=== PATIENT | female | born 1985 | race Two or more races ===

== ENCOUNTER → 2024-09-06 | Outpatient (CLI) | payer OTHER, SELFPAY ==
[2024-09-06 17:05] LABS: Hepatitis B Surface Ab Reactive (Immune) (Immune)
[2024-09-06 17:36] LABS: Beta HCG,Quantitative 43430 mIU/mL (<5.0)
[2024-09-13 06:27] LABS: HIV Ag/Ab, 4th Gen NON-REACTIVE
== END | disposition home or self-care (01) ==
PROVIDERS: Referring Provider Obstetrics & Gynecology; Visit Provider Obstetrics & Gynecology
DX: O20.0 Threatened abortion (principal)
CPT/HCPCS: 36415; 84702; 86706; 86850; 87077; 87086; 87186; 87389

== ENCOUNTER 2024-09-10 16:06 | Emergency (ER) | payer OTHER, MEDICAID, SELFPAY ==
[2024-09-10 16:18] VITALS: BP 112/72; PULSE 81; RESP 16; TEMP 36.8; O2SAT 100; BMI 23.8
--- NOTE | 2024-09-10 16:32 | XR_ITS ---
Examination: Complete OB ultrasound, less than 14 weeks, transabdominal Date and time of exam: September 10, 2024 1648 hours INDICATIONS: Vaginal bleeding and cramping beginning 2 days ago Technique: Obstetrical ultrasound images less than 14 weeks performed via transabdominal imaging Findings: A normal shaped single intrauterine gestation is present in the uterus. CRL 0.4 cm correspondences 6 weeks 1 day gestational age Cardiac motion 104 BPM Ultrasonographic survey of visible and placental structures unremarkable. Amniotic fluid volume appears appropriate for this estimated gestational age. Right ovary 3.3 x 2.0 x 3.3 cm arterial flow, right adnexal cystic mass with irregular margins, 2.5 x 2.0 x 1.8 cm Left ovary 3.8 x 1.6 x 2.7 cm arterial flow IMPRESSION: Viable intrauterine gestation 6 weeks 1 day Right ovarian cystic mass, irregular margins, 2.5 x 2.0 x 1.8 cm, this may represent a simple right ovarian cyst, although less likely, ectopic cannot be excluded, the appearance should be clinically correlated Recommend short-term follow-up transvaginal pelvic sonography as clinically warranted.
--- NOTE | 2024-09-10 16:32 | PD.EDRME ---
Rapid Medical Screening Exam RME Arrival date/time: 09/10/24 16:06 38-year-old female presents the emergency department today stating that she is approximately 10 weeks patient reports vaginal bleeding and cramping Chief Complaint: OB/Uterine Contractions Time Seen by Provider: 09/10/24 16:19 Vital signs: Vital Signs Temperature 98.2 F 09/10/24 16:18 Pulse Rate 81 09/10/24 16:18 Respiratory Rate 16 09/10/24 16:18 Blood Pressure 112/72 09/10/24 16:18 Pulse Oximetry (%) 100 09/10/24 16:18 Oxygen Delivery Method Room Air 09/10/24 16:18
[2024-09-10 17:17] LABS: Collection Type, Urine Clean Catch
[2024-09-10 17:34] LABS: Amorphous Crystals,Urine Present (Absent); Bacteria,Urine Rare; Bilirubin,Urine Negative (Negative); Blood,Urine Negative (Negative); Color,Urine Lt-Yellow (Lt Yel-Yel); Glucose, Urine Negative (Negative); Ketones,Urine Trace (Negative); Leukocyte Esterase,Urine Negative (Negative); Nitrite,Urine Negative (Negative); Protein,Urine Negative (Neg - Trace); RBC,Urine 9 /hpf (0-3); Specific Gravity,Urine 1.017 (1.001-1.035); Squamous Epithelial Cell,Urine 6 /hpf (0-5); Urobilinogen,Urine Negative mg/dL (0.0-1.0); WBC,Urine 8 /hpf (0-5)
[2024-09-10 17:41] LABS: Clarity,Urine Hazy (Clear/Hazy)
[2024-09-10 17:53] LABS: Basophils % (Auto) 0 % (0-2.5); Eosinophils # (Auto) 0.1 Thou/mm3 (0.0-0.5); Eosinophils % (Auto) 1 % (0-10); Hematocrit 37.2 % (36.0-46.0); Hemoglobin 12.3 g/dL (12.0-16.0); Immature Granulocytes % (Auto) 0 % (0-0); Immature Granulocytes Auto 0.02 Thou/mm3 (0.00-0.00); Lymphocytes # (Auto) 1.8 Thou/mm3 (1.0-4.8); Lymphocytes % (Auto) 21 % (10-50); Mean Corpuscular HGB Conc 33.1 g/dl (31.0-37.0); Mean Corpuscular Hemoglobin 27.2 pg (25.0-35.0); Mean Corpuscular Volume 82 fL (80-100); Monocytes # (Auto) 0.8 Thou/mm3 (0.0-0.8); Monocytes % (Auto) 9 % (0-12); Neutrophils # (Auto) 5.9 Thou/mm3 (1.8-7.7); Neutrophils % (Auto) 69 % (37-80); Nucleated Red Blood Cell % 0 /100 WBC (0); Platelet Count 363 Thou/mm3 (140-440); RDW Standard Deviation 39.8 fL (36.4-46.3); Red Blood Count 4.52 Miln/mm3 (4.00-5.20); White Blood Count 8.5 Thou/mm3 (3.6-11.0)
[2024-09-10 18:15] LABS: Alanine Aminotransferase 15 U/L (10-49); Albumin, Serum 4.8 gm/dL (3.5-5.0); Albumin/Globulin Ratio 1.9 (1.2-2.2); Alkaline Phosphatase 50 U/L (46-116); Anion Gap 7 (7-16); Aspartate Amino Transferase 20 U/L (0-34); BUN/Creatinine Ratio 13 Ratio (12-20); Bilirubin,Total 0.3 mg/dL (0.3-1.2); Blood Urea Nitrogen 9 mg/dL (9-23); Calcium 9.6 mg/dL (8.3-10.6); Calcium (Corrected) 9.6 mg/dL (8.5-10.1); Carbon Dioxide 24.7 mMol/L (20.0-31.0); Chloride 102 mMol/L (98-107); Creatinine (Component) 0.7 mg/dL (0.6-1.3); Estimated Creatinine Clearance 104.9 mL/min (>60); Globulin 2.5 gm/dL (2.3-3.5); Glucose 90 mg/dL (74-106); Osmolality,Calculated 266 (275-295); Potassium 3.5 mMol/L (3.4-5.1); Sodium 134 mMol/L (136-145); Total Protein 7.3 gm/dL (5.7-8.2); eGFR > 60 See Note
[2024-09-10 18:42] LABS: Beta HCG,Quantitative 75140 mIU/mL (<5.0)
--- NOTE | 2024-09-10 19:17 | PC.NURSE ---
PATIENT STATED SHE WAS LEAVING. PATIENT SEEN LEAVING; ELOPED.
== END 2024-09-10 19:18 | disposition left against medical advice (07) ==
LOC: SERX 16:41
PROVIDERS: Nurse Practitioner Primary Care; Emergency Provider Emergency Medicine; PCP Physician Assistant
DX: O20.9 Hemorrhage in early pregnancy, unspecified (principal); Z3A.10 10 weeks gestation of pregnancy; Z53.29 Procedure and treatment not carried out because of patient's decision for other reasons
CPT/HCPCS: 36415; 76801; 80053; 81001; 84702; 85025; 86900; 86901; 99284

== ENCOUNTER → 2024-09-10 | Outpatient (CLI) | payer OTHER, MEDICAID, SELFPAY ==
[2024-09-10 16:30] LABS: Beta HCG,Quantitative 73318 mIU/mL (<5.0)
== END | disposition home or self-care (01) ==
LOC: COPL 14:51
PROVIDERS: Referring Provider Obstetrics & Gynecology; Visit Provider Obstetrics & Gynecology
DX: O20.0 Threatened abortion (principal)
CPT/HCPCS: 36415; 84702